=== PATIENT | female | born 1945 | race American Indian/Alaskan Native ===

== ENCOUNTER 2023-07-20 10:49 | Day surgery (SDC) | payer MEDICARE, OTHER ==
[2023-07-20] VITALS (8 sets, daily range): BP systolic 98–216; BP diastolic 46–88
[~2023-07-20] VITALS: Ht 152.4 cm; Wt 85.0 kg
[~2023-07-20 10:49] MED LIST: ALBU90OI; ALPRAZOLAM2 M1; ATOR20 PO; Alphagan P5 ML; GLIM4 PO; LATANOPROST2.5 M3; PANT40 PO; PIOG15 PO; POTA20PAC; PSEU120ER PO
[2023-07-20] MEDS ORDERED: Nitroglycerin 2 MG/20 ML BTL ONE (12:19)
[2023-07-20] MEDS ORDERED: NS 1,000 ML IV ONE ×2 (12:19→12:48)
[2023-07-20] MEDS ORDERED: NS 250 ML IV ONE (12:19)
[2023-07-20] MEDS ORDERED: Heparin Sodium 1000 Units/ML 10ML MDV ONE (12:19)
[2023-07-20] MEDS ORDERED: FentaNYL Citrate 50 MCG/ML 2 ML Injection ONE ×3 (12:48→14:02)
[2023-07-20] MEDS ORDERED: Midazolam HCl 1MG / ML 2ML Vial ONE ×2 (12:48→14:02)
[2023-07-20] MEDS ORDERED: HydrALAZINE HCl 20 MG / ML 1ML Vial ONE (13:14)
--- NOTE | 2023-07-20 14:35 | NUR ---
ASSUMED CARE OF PT POST PROCEDURE. PT DROWSY, BUT CONVERSING APPROPRIATELY; DENIES PAIN POST PROCEDURE. MONITOR SR 60-70'S, B/P 98/48, SPO2 91% RA, AFEBRILE. L GROIN NO SWELLING/HEMATOMA, TEGADERM DRSG INTACT; ANGIO SEAL DEPLOYED, LLE: DOPPLER X 2, RLE: DP ABS, PT DOP. PT'S DAUGHTER AT BEDSIDE, ATTENTIVE.
--- NOTE | 2023-07-20 14:50 | NUR ---
PT C/O MID/LOW BACK DISCOMFORT 08/05-REPORTS THIS IS CHRONIC.
--- NOTE | 2023-07-20 15:35 | NUR ---
PT HOB ELEVATED, SITE REMAINS UNCHANGED. PT REPORTS MID/LOW BACK DISCOMFORT RESOLVED AFTER REPOSITIONING. PT EATING LUNCH WITHOUT ISSUE.
--- NOTE | 2023-07-20 16:35 | NUR ---
PT AMB TO THE BATHROOM WITH ASSIST, GAIT STEADY, SITE UNCHANGED.
--- NOTE | 2023-07-20 16:45 | NUR ---
PT DRESSED WITH ASSISTANCE, SITE UNCHANGED; IV REMOVED-CANNULA INTACT.
--- NOTE | 2023-07-20 16:53 | NUR ---
PT AND DAUGHTER RECEIVED DISCHARGE INSTRUCTIONS, MED LIST AND AFTER CARE INSTRUCTIONS; VERBALIZED GOOD UNDERSTANDING. PT LEFT FACILITY VIA W/C, CONDITION STABLE.
== END 2023-07-20 16:53 | disposition home or self-care (01) ==
LOC: MHTC 10:49
DX: I70.221 Atherosclerosis of native arteries of extremities with rest pain, right leg (principal); L97.519 Non-pressure chronic ulcer of other part of right foot with unspecified severity; J43.9 Emphysema, unspecified; K21.9 Gastro-esophageal reflux disease without esophagitis; F17.210 Nicotine dependence, cigarettes, uncomplicated; Z88.8 Allergy status to other drugs, medicaments and biological substances; Z79.82 Long term (current) use of aspirin; Z79.899 Other long term (current) drug therapy
CPT/HCPCS: 76937; 82947; 99152; 99153; C1714; C1725; C1760; C1769; C1887; C1894; C2623; J0360; J1644; J2250; J3010; J7030; J7050; Q9967